=== PATIENT | female | born 1965 | race Caucasian/White ===

== ENCOUNTER → 2016-08-21 | Outpatient (CLI) | payer BC ==
--- NOTE | 2016-08-21 09:43 | MA ---
Digital screening mammogram bilateral with tomosynthesis 08/21/2016 9:02 History:Routine screening. Prior personal history of left breast malignancy, treated with lumpectomy and external beam radiotherapy. Comparison: August 20, 2015, August 24, 2014, April 23, 2014. Technique: Standard digital cephalocaudal and tomosynthesis mediolateral oblique projections are obt ained. This examination is processed by the [employer] computer-aided detection system. Findings: Breast density: Type III No spiculated masses, malignant type microcalcifications, or mammographic features of malignancy nahid ntified. Postsurgical/radiotherapy changes and architectural distortion again noted in the upper outer left br east, stable. Prior right breast biopsy with metallic tissue marker. IMPRESSION: No mammographic features of malignancy. BI-RADS 2: Benign Finding. Recommendation: Routine screening mammography in one year. [facility] will send a result letter to the patient. Negative mammography should not preclude additional workup of a clinically suspicious finding. The patient's information is entered into a reminder system with a target due date for her next mammo gram.
== END | disposition home or self-care (01) ==
LOC: FIMAGING 08:59
PROVIDERS: ATTEND Internal Medicine Hematology & Oncology
DX: Z12.31 Encounter for screening mammogram for malignant neoplasm of breast (principal); C64.1 Malignant neoplasm of right kidney, except renal pelvis; C64.2 Malignant neoplasm of left kidney, except renal pelvis; Z85.3 Personal history of malignant neoplasm of breast; Z92.3 Personal history of irradiation
CPT/HCPCS: G0202

== ENCOUNTER → 2016-09-25 | Outpatient (CLI) | payer BC | LOC: BMCIMAGING 13:04 | PROVIDERS: ATTEND Internal Medicine | DX: M25.561 Pain in right knee (principal); M25.562 Pain in left knee ==

== ENCOUNTER → 2017-08-27 | Outpatient (CLI) | payer BC, OTHER | LOC: FIMAGING 10:08 | PROVIDERS: ATTEND Internal Medicine Hematology & Oncology | DX: Z12.31 Encounter for screening mammogram for malignant neoplasm of breast (principal); Z85.3 Personal history of malignant neoplasm of breast; Z92.3 Personal history of irradiation ==

== ENCOUNTER → 2017-09-18 | Outpatient (CLI) | payer OTHER | LOC: FIMAGING 11:07 | PROVIDERS: ATTEND Internal Medicine Hematology & Oncology | DX: Z13.820 Encounter for screening for osteoporosis (principal); Z78.0 Asymptomatic menopausal state; C50.412 Malignant neoplasm of upper-outer quadrant of left female breast; Z79.811 Long term (current) use of aromatase inhibitors ==

== ENCOUNTER → 2018-07-10 | Outpatient (CLI) | payer BC | LOC: FIMAGING 13:30 | PROVIDERS: ATTEND Internal Medicine Hematology & Oncology | DX: R92.8 Other abnormal and inconclusive findings on diagnostic imaging of breast (principal) ==